=== PATIENT | male | born 1995 | race Caucasian/White ===

== ENCOUNTER 2017-03-05 22:19 | Emergency (ER) | payer SELFPAY ==
[~2017-03-05] VITALS: Ht 180.3 cm; Wt 77.3 kg
[2017-03-05] MEDS ORDERED: IBUPROFEN 800 MG TABLET PO ONE (23:30)
[2017-03-05] MEDS ORDERED: SULFAMETHOX/TRIMETH DS 800-160 MG/TABLET PO ONE (23:30)
[2017-03-05 23:53] VITALS: BP 130/79
== END 2017-03-06 00:04 | disposition home or self-care (01) ==
LOC: EMS 22:21
DX: J32.9 Chronic sinusitis, unspecified (principal); F12.90 Cannabis use, unspecified, uncomplicated
CPT/HCPCS: 99283

== ENCOUNTER 2018-03-10 10:34 | Emergency (ER) | payer MEDICAID ==
[~2018-03-10] VITALS: Ht 180.3 cm; Wt 95.0 kg
[2018-03-10 12:45] VITALS: BP 118/62
== END 2018-03-10 13:34 | disposition home or self-care (01) ==
LOC: EMS 10:35
DX: M79.672 Pain in left foot (principal); F12.90 Cannabis use, unspecified, uncomplicated
CPT/HCPCS: 99284